=== PATIENT | female | born 1985 | race Caucasian/White ===

== ENCOUNTER 2022-07-21 13:45 | Emergency (ER) | payer OTHER, SELFPAY ==
[2022-07-21 14:02] VITALS: BP 133/67; PULSE 99; RESP 26; TEMP 36.8; O2SAT 98; BMI 28.3
[2022-07-21 14:27] LABS: Add Manual Diff / Slide Review NO; Basophils Absolute Auto 100 /uL (0-100); Basophils Percent Auto 0.8 % (0-2); Eosinophils Absolute Auto 200 /uL (0-450); Eosinophils Percent Auto 2.2 % (2-4); Hemoglobin 12.8 g/dL (12.0-16.0); Lymphocytes Absolute Auto 1200 /uL (1100-4500); Lymphocytes Percent Auto 15.2 % (25-40); Mean Corpuscular HGB Conc 32.9 % (30-36); Mean Corpuscular Hemoglobin 27.3 PG (26-34); Monocytes Absolute Auto 300 /uL (0-900); Monocytes Percent Auto 3.9 % (3-14); Neutrophils Absolute Auto 6100 /uL (1500-7000); Neutrophils Percent Auto 77.9 % (50-75); Platelet Count 322 X10^3/uL (150-400); Red Cell Distribution Width 16.4 % (11.6-14.8); White Blood Cell Count 7.9 X10^3/uL (4.5-11.0)
[2022-07-21 14:38] LABS: Alanine Aminotransferase 19 IU/L (<35); Albumin 4.6 g/dL (3.5-5.0); Albumin Globulin Ratio 1.3 (1.0-2.8); Alkaline Phosphatase 50 U/L (38-126); Aspartate Aminotransferase 23 IU/L (14-36); BUN Creatinine Ratio 27.5 (6-22); Bilirubin Total 0.4 mg/dL (0.2-1.3); Blood Urea Nitrogen 14 mg/dL (7-17); Calcium 9.5 mg/dL (8.4-10.2); Carbon Dioxide 27 mmol/L (22-32); Chloride 101 mmol/L (98-107); Estimated Glomerular Filt Rate > 60 mL/min (>60); Globulin 3.5 g/dL (1.7-4.1); Glucose 110 mg/dL (70-100); HEMOLYSIS < 15 (0-50); Lipase 80 U/L (23-300); Potassium 3.8 mmol/L (3.4-5.1); Sodium 140 mmol/L (137-145); Total Protein 8.1 g/dL (6.3-8.2)
[2022-07-21 14:50] VITALS: BP 129/73; PULSE 93; O2SAT 100
[2022-07-21] MEDS: ONDANSETRON 4 MG/2 ML INJ IV (15:07)
--- NOTE | 2022-07-21 16:20 | DI.US.S_ITS ---
PROCEDURE: US PELVIC COMPLETE INDICATIONS: PAIN TECHNIQUE: Real-time scanning was performed of the pelvic organs, with image documentation. Additional endovaginal scanning was necessary due to incomplete visualization of the adnexal and endometrial structures by transabdominal scanning. COMPARISON: None. FINDINGS: Uterus: Uterus is anteverted and normal in size at 8.4 x 4.6 x 5.3 cm. The myometrium is homogeneous. The endometrium measures 12.6 mm combined thickness. No focal uterine abnormalities. Ovaries: The right ovary measures 2.3 x 1.3 x 2.5 cm, with a calculated ovarian volume of 3.9 cc. The left ovary measures 2.1 x 2.5 x 2.3 cm, with a calculated ovarian volume of 6.3 cc. The ovaries have a normal sonographic appearance. Less than 12 follicles can be seen in each ovary. No adnexal masses are seen. Other: No pathologic free abdominal or pelvic fluid. IMPRESSION: Pelvic ultrasound without acute sonographic abnormalities. We strive to produce accurate, complete, and clear reports of imaging services. To assist us in improving patient care, this report was composed using standard report templates and voice recognition software. Therefore, it may contain abnormal punctuation, insertions and/or omissions. Occasional wrong-word or sound-alike substitutions may occur. Though we review the report and make efforts to correct it, we do recommend that the report be read carefully in proper context to recognize any text inaccuracies. Dictated by: Edwar Hooks M.D. on 07/21/2022 at 17:26 Approved by: Edwar Hooks M.D. on 07/21/2022 at 17:27
--- NOTE | 2022-07-21 16:22 | ED_ITS ---
HPI - Abdominal Pain <Fatuma Jones EMPLOYMENT SERVICE SPECIALIST - Last Filed: 07/21/22 21:26> General Chief Complaint: Abdominal Pain Stated Complaint: Right side cyst pain 2hrs Time Seen by Provider: 07/21/22 14:23 Source: patient Mode of arrival: Family Vehicle History of Present Illness HPI narrative: This is a 37 year old female with history of , tubal ligation, states that she has adrenal insufficiency from high doses of steroids for many years for atopic dermatitis who presents with right pelvic pain which she thinks is related to an ovarian cyst. She states that she has history of ovarian cyst, last menses was 1.5 weeks ago. She denies any abnormal vaginal discharge, urinary frequency or urgency, denies any weakness, nausea, vomiting. States that she took ibuprofen at noon today. She is tearful, has allergy to hydrocodone but states that she tolerates Percocet. Denies diarrhea, cough, congestion, denies other abdominal pain. Related Data Home Medications Medication Instructions Recorded Confirmed acyclovir 800 mg tablet (Zovirax) 800 mg PO QDAY ##0 03/22/17 albuterol sulfate 90 mcg/actuation 1 puff INH ##0 03/22/17 aerosol inhaler (Proventil HFA) alprazolam 0.25 mg tablet 0.5 mg PO Q8HP PRN ##0 03/22/17 diclofenac 50 mg-misoprostol 200 1 tab PO TID ##0 03/22/17 mcg tablet,immed.and delayed release (Arthrotec) hydrocortisone 10 mg tablet 10 mg PO BIDCC ##0 03/22/17 (Cortef) methylprednisolone acetate 40 25 mg IM PRN PRN ##0 03/22/17 mg/mL suspension for injection (Depo-Medrol) mupirocin 2 % topical ointment 1 teo topical TID ##0 03/22/17 sertraline 50 mg tablet (Zoloft) 50 mg PO QDAY ##0 03/22/17 Allergies Allergy/AdvReac Type Severity Reaction Status Date / Time doxycycline [DOXYCYCLINE] Allergy Intermediate N/V Unverified 10/25/17 12:26 hydrocodone Allergy Mild HIVES Unverified 10/25/17 12:26 Sulfa (Sulfonamide Allergy Mild HIVES Unverified 10/25/17 12:26 Antibiotics) Review of Systems <LES Walker - Last Filed: 07/21/22 21:26> Review of Systems ROS Unobtainable: All systems reviewed & are unremarkable except as noted in HPI and below Patient History <LES Walker - Last Filed: 07/21/22 21:26> Social History Smoking Status: Never smoker Smoking Status: Never smoker alcohol intake frequency: 0-2 drinks per day Substance Use Type: marijuana Exam <LES Walker - Last Filed: 07/21/22 21:26> Narrative Exam Narrative: Reviewed vitals signs and nursing notes. General: cooperative, comfortable, in no acute distress, well groomed HEENT: symmetrical facial expressions, moist mucous membranes Cardiovascular: regular rate and rhythm, no peripheral edema, warm extremities Respiratory: normal effort, able to speak in complete sentences, without wheezing, stridor, or abnormal breath sounds. No retractions or tachypnea. GI: abdomen soft, abdomen is nontender to palpation, right sided pelvic pain with deep palpation, nondistended, without masses, rebound tenderness or exquisite tenderness with exam. MSK: moves all extremities, neurovascularly intact, no weakness, normal tone Skin: brisk capillary refill, without pallor or erythema Neuro: normal speech and cognition, A&O x3, ambulatory, clear speech Psych: mental status is grossly normal, congruent mood, normal affect, pleasant and cooperative Initial Vital Signs Initial Vital Signs: Vital Signs Temperature 98.2 F 07/21/22 14:02 Pulse Rate 99 H 07/21/22 14:02 Respiratory Rate 26 H 07/21/22 14:02 Blood Pressure 133/67 07/21/22 14:02 Pulse Oximetry 98 07/21/22 14:02 Oxygen Delivery Method 07/21/22 14:02 <Roman Limon DO - Last Filed: 07/23/22 11:34> Initial Vital Signs Initial Vital Signs: Vital Signs Temperature 98.2 F 07/21/22 14:02 Pulse Rate 99 H 07/21/22 14:02 Respiratory Rate 26 H 07/21/22 14:02 Blood Pressure 133/67 07/21/22 14:02 Pulse Oximetry 98 07/21/22 14:02 Oxygen Delivery Method 07/21/22 14:02 Course <LES Walker - Last Filed: 07/21/22 21:26> Orders Ordered: Discontinued Medications Ketorolac Tromethamine (Ketorolac 30 Mg/Ml Vial) 15 mg IV NOW ONE Stop: 07/21/22 16:21 Last Admin: 07/21/22 16:33 Dose: 15 mg Documented By: NEVIN Ketorolac Tromethamine (Ketorolac 30 Mg/Ml Vial) 15 mg IM NOW ONE Stop: 07/21/22 16:21 Last Admin: 07/21/22 16:37 Dose: Not Given Documented By: NEVIN Ondansetron HCl (Ondansetron 4 Mg Odt) 4 mg PO NOW PRN PRN Reason: Nausea And Vomiting Ondansetron HCl (Ondansetron 4 Mg/2 Ml Inj) 4 mg IV NOW PRN PRN Reason: Nausea And Vomiting Last Admin: 07/21/22 15:07 Dose: 4 mg Documented By: LAURA Oxycodone/Acetaminophen (Oxycodone/Acetaminophen 5/325 Tablet) 1 tab PO NOW ONE Stop: 07/21/22 16:21 Last Admin: 07/21/22 16:33 Dose: 1 tab Documented By: NEVIN Vital Signs Vital signs: Vital Signs - 8 hr 07/21/22 14:02 07/21/22 14:50 07/21/22 17:43 Temperature 98.2 F Pulse Rate 99 H 93 H 73 Respiratory Rate 26 H Blood Pressure 133/67 129/73 107/61 Pulse Oximetry 98 100 100 Oxygen Delivery Method Room Air Room Air Room Air 07/21/22 19:20 Temperature Pulse Rate 81 Respiratory Rate 18 Blood Pressure 111/64 Pulse Oximetry 98 Oxygen Delivery Method Room Air <Roman Limon DO - Last Filed: 07/23/22 11:34> Orders Ordered: Discontinued Medications Ketorolac Tromethamine (Ketorolac 30 Mg/Ml Vial) 15 mg IV NOW ONE Stop: 07/21/22 16:21 Last Admin: 07/21/22 16:33 Dose: 15 mg Documented By: NEVIN Ketorolac Tromethamine (Ketorolac 30 Mg/Ml Vial) 15 mg IM NOW ONE Stop: 07/21/22 16:21 Last Admin: 07/21/22 16:37 Dose: Not Given Documented By: NEVIN Ondansetron HCl (Ondansetron 4 Mg Odt) 4 mg PO NOW PRN PRN Reason: Nausea And Vomiting Ondansetron HCl (Ondansetron 4 Mg/2 Ml Inj) 4 mg IV NOW PRN PRN Reason: Nausea And Vomiting Last Admin: 07/21/22 15:07 Dose: 4 mg Documented By: LAURA Oxycodone/Acetaminophen (Oxycodone/Acetaminophen 5/325 Tablet) 1 tab PO NOW ONE Stop: 07/21/22 16:21 Last Admin: 07/21/22 16:33 Dose: 1 tab Documented By: NEVIN Vital Signs Vital signs: Vital Signs - 8 hr 07/21/22 14:02 07/21/22 14:50 07/21/22 17:43 Temperature 98.2 F Pulse Rate 99 H 93 H 73 Respiratory Rate 26 H Blood Pressure 133/67 129/73 107/61 Pulse Oximetry 98 100 100 Oxygen Delivery Method Room Air Room Air Room Air 07/21/22 19:20 Temperature Pulse Rate 81 Respiratory Rate 18 Blood Pressure 111/64 Pulse Oximetry 98 Oxygen Delivery Method Room Air MDM - Abdominal Pain <LES Walker - Last Filed: 07/21/22 21:26> Lab Data Result diagrams: 07/21/22 14:17 07/21/22 14:17 Labs: Lab Results 07/21/22 07/21/22 07/21/22 Range/Units 14:17 14:17 17:00 WBC 7.9 (4.5-11.0) X10^3/uL RBC 4.70 (4.0-5.2) X10^6/uL Hgb 12.8 (12.0-16.0) g/dL Hct 39.0 (36-46) % MCV 83.0 (80-100) fL MCH 27.3 (26-34) PG MCHC 32.9 (30-36) % RDW 16.4 H (11.6-14.8) % Plt Count 322 (150-400) X10^3/uL Neut % (Auto) 77.9 H (50-75) % Lymph % (Auto) 15.2 L (25-40) % Sunflower % (Auto) 3.9 (3-14) % Eos % (Auto) 2.2 (2-4) % Baso % (Auto) 0.8 (0-2) % Neut # (Auto) 6100 (7008-6624) /uL Lymph # (Auto) 1200 (6319-4910) /uL Sunflower # (Auto) 300 (0-900) /uL Eos # (Auto) 200 (0-450) /uL Baso # (Auto) 100 (0-100) /uL Sodium 140 (137-145) mmol/L Potassium 3.8 (3.4-5.1) mmol/L Chloride 101 (98-107) mmol/L Carbon Dioxide 27 (22-32) mmol/L BUN 14 (7-17) mg/dL Creatinine 0.51 L (0.52-1.04) mg/dL Estimated GFR > 60 (>60) mL/min BUN/Creatinine Ratio 27.5 H (6-22) Glucose 110 H (70-100) mg/dL Calcium 9.5 (8.4-10.2) mg/dL Total Bilirubin 0.4 (0.2-1.3) mg/dL AST 23 (14-36) IU/L ALT 19 (<35) IU/L Alkaline Phosphatase 50 (38-126) U/L Total Protein 8.1 (6.3-8.2) g/dL Albumin 4.6 (3.5-5.0) g/dL Globulin 3.5 (1.7-4.1) g/dL Albumin/Globulin Ratio 1.3 (1.0-2.8) Lipase 80 (23-300) U/L Urine RBC 0-1/hpf (0-5/HPF) Urine WBC None seen (0-5/HPF) Urine Bacteria None seen (None) Ur Culture Indicated? Cult not indicated Ur Chlamydia DNA (PCR) N gonorrhoeae DNA (PCR) 07/21/22 Range/Units 17:00 WBC (4.5-11.0) X10^3/uL RBC (4.0-5.2) X10^6/uL Hgb (12.0-16.0) g/dL Hct (36-46) % MCV (80-100) fL MCH (26-34) PG MCHC (30-36) % RDW (11.6-14.8) % Plt Count (150-400) X10^3/uL Neut % (Auto) (50-75) % Lymph % (Auto) (25-40) % Sunflower % (Auto) (3-14) % Eos % (Auto) (2-4) % Baso % (Auto) (0-2) % Neut # (Auto) (4134-6663) /uL Lymph # (Auto) (1337-2969) /uL Sunflower # (Auto) (0-900) /uL Eos # (Auto) (0-450) /uL Baso # (Auto) (0-100) /uL Sodium (137-145) mmol/L Potassium (3.4-5.1) mmol/L Chloride (98-107) mmol/L Carbon Dioxide (22-32) mmol/L BUN (7-17) mg/dL Creatinine (0.52-1.04) mg/dL Estimated GFR (>60) mL/min BUN/Creatinine Ratio (6-22) Glucose (70-100) mg/dL Calcium (8.4-10.2) mg/dL Total Bilirubin (0.2-1.3) mg/dL AST (14-36) IU/L ALT (<35) IU/L Alkaline Phosphatase (38-126) U/L Total Protein (6.3-8.2) g/dL Albumin (3.5-5.0) g/dL Globulin (1.7-4.1) g/dL Albumin/Globulin Ratio (1.0-2.8) Lipase (23-300) U/L Urine RBC (0-5/HPF) Urine WBC (0-5/HPF) Urine Bacteria (None) Ur Culture Indicated? Ur Chlamydia DNA (PCR) Not detected N gonorrhoeae DNA (PCR) Not detected Imaging Data US - POT FEEDER: Radiologist's Impression: Patient: Zee Blackwell MR#: [id number] : 1985 Acct:[id number] Age/Sex: 37 / F Date of Service: 07/21/22 Loc: ED Accession Number: [id number] ?? Procedure: US pelvic complete Ordering Provider: Fatuma Jones PROCEDURE:? US PELVIC COMPLETE ? INDICATIONS:? PAIN ? TECHNIQUE:? Real-time scanning was performed of the pelvic organs, with image documentation.? Additional endovaginal scanning was necessary due to incomplete visualization of the adnexal and endometrial structures by transabdominal scanning.? ? COMPARISON:? None. ? FINDINGS:? ?? Uterus:? Uterus is anteverted and normal in size at 8.4 x 4.6 x 5.3 cm. The my ometrium is homogeneous. ? The endometrium measures 12.6 mm combined thickness.? No focal uterine abnormalities. ? Ovaries:? The right ovary measures 2.3 x 1.3 x 2.5 cm, with a calculated ovarian volume of 3.9 cc. The left ovary measures 2.1 x 2.5 x 2.3 cm, with a calculated ovarian volume of 6.3 cc. The ovaries have a normal sonographic appearance. Less than 12 follicles can be seen in each ovary.? No adnexal masses are seen. ? Other:? No pathologic free abdominal or pelvic fluid. ? ? IMPRESSION:? Pelvic ultrasound without acute sonographic abnormalities. ? ? We strive to produce accurate, complete, and clear reports of imaging services. To assist us in improving patient care, this report was composed using standard report templates and voice recognition software. Therefore, it may contain abnormal punctuation, insertions and/or omissions. Occasional wrong-word or sound-alike substitutions may occur. Though we review the report and make efforts to correct it, we do recommend that the report be read carefully in proper context to recognize any text inaccuracies. ? ? Dictated by: Edwar Hooks M.D. on 07/21/2022 at 17:26 ? ? Approved by: Edwar Hooks M.D. on 07/21/2022 at 17:27 ? MDM Narrative Medical decision making narrative: This is a 37-year-old female, who presents to the emergency department with right pelvic pain with history of ovarian cyst, is not on contraception, last menses was 1.5 weeks ago complains of right pelvic pain without fever, chills, other abdominal pain, flank pain, dysuria or shortness breath. Differential diagnosis include biliary disease, pancreatitis, STI, perforated viscus, appendicitis, colitis, diverticulitis, IBS, intestinal ischemia, ectopic , ovarian cyst, acute cystitis, PID, cholecystitis, choledocholithiasis, cholangitis, gastritis, esophagitis with underlying GERD, viral gastroenteritis or other acute viral process including COVID, influenza or RSV, appendicitis, acute cystitis, nephrolithiasis, pyelonephritis, AAA, ACS, infectious colitis. Routine labs, transvaginal US, urinalysis, lipase and urine ordered. ?Patient provided IV Zofran toradol and percocet for discomfort. Course of Care: Pelvis Ultrasound is negative for acute sonographic abnormalities, no masses, without free abdominal pelvic fluid. UA is negative for infection, RBCs, and G and C gonorrhea chlamydia negative via PCR Patient's lab work overall is unremarkable without electrolyte abnormality, elevated liver enzymes, leukocytosis or anemia. Urine is negative Patient's symptoms improved over duration of stay with above-stated therapies. Encourage patient to follow-up with her PCP for another evaluation, gave her contact information for OBGYN follow-up, this is most likely a ruptured ovarian cyst as her symptoms have improved, she is 1.5 weeks outside of her regular menses, pregnancies negative, without torsion or ectopic . She was p rovided pain control and encouraged to use MiraLax or other stool softener to help keep her stool soft. Ibuprofen and Tylenol as recommended with hydration and follow-up. Patient is appropriate and amenable to discharge home. Vital signs are stable on repeat examination is unremarkable. Patient has been informed of results. Patient has been given strict return to ER precautions for any new or worsening symptoms. Patient understands to follow up closely with outpatient providers as instructed. Patient understands plan and agrees to discharge home. All questions and concerns answered at this time. MIPS: This encounter doesn't have any diagnosis associated with MIPS criteria. Social determinants of health that may impact treatment or disposition: Vital Signs: I, the ED provider, reviewed the patient?s vital signs, past medical records and encounters if available, and nursing notes. I have spoken with the patient/family and discussed today?s findings whom verbalize understanding. Counseling was provided regarding the diagnosis and prognosis, and specific details were provided for the plan of care. Questions are addressed and there is agreement with the plan and for follow-up. Patient is appropriate for outpatient management. Portions of this chart have been created with [employer] voice recognition software. Occasional wrong word or sound alike substitutions may have occurred due to the inherent limitations of this software. I, LES Reese, personally performed the services described in the documentation, and it accurately records my words and actions. I collaborated with the ED attending physician for TANIKA level 2, 3, and some level 4s as needed Electronically signed by: LES Reese <Roman Limon, DO - Last Filed: 07/23/22 11:34> Lab Data Labs: Lab Results 07/21/22 07/21/22 07/21/22 Range/Units 14:17 14:17 17:00 WBC 7.9 (4.5-11.0) X10^3/uL RBC 4.70 (4.0-5.2) X10^6/uL Hgb 12.8 (12.0-16.0) g/dL Hct 39.0 (36-46) % MCV 83.0 (80-100) fL MCH 27.3 (26-34) PG MCHC 32.9 (30-36) % RDW 16.4 H (11.6-14.8) % Plt Count 322 (150-400) X10^3/uL Neut % (Auto) 77.9 H (50-75) % Lymph % (Auto) 15.2 L (25-40) % Sunflower % (Auto) 3.9 (3-14) % Eos % (Auto) 2.2 (2-4) % Baso % (Auto) 0.8 (0-2) % Neut # (Auto) 6100 (5068-6964) /uL Lymph # (Auto) 1200 (7066-4914) /uL Sunflower # (Auto) 300 (0-900) /uL Eos # (Auto) 200 (0-450) /uL Baso # (Auto) 100 (0-100) /uL Sodium 140 (137-145) mmol/L Potassium 3.8 (3.4-5.1) mmol/L Chloride 101 (98-107) mmol/L Carbon Dioxide 27 (22-32) mmol/L BUN 14 (7-17) mg/dL Creatinine 0.51 L (0.52-1.04) mg/dL Estimated GFR > 60 (>60) mL/min BUN/Creatinine Ratio 27.5 H (6-22) Glucose 110 H (70-100) mg/dL Calcium 9.5 (8.4-10.2) mg/dL Total Bilirubin 0.4 (0.2-1.3) mg/dL AST 23 (14-36) IU/L ALT 19 (<35) IU/L Alkaline Phosphatase 50 (38-126) U/L Total Protein 8.1 (6.3-8.2) g/dL Albumin 4.6 (3.5-5.0) g/dL Globulin 3.5 (1.7-4.1) g/dL Albumin/Globulin Ratio 1.3 (1.0-2.8) Lipase 80 (23-300) U/L Urine RBC 0-1/hpf (0-5/HPF) Urine WBC None seen (0-5/HPF) Urine Bacteria None seen (None) Ur Culture Indicated? Cult not indicated Ur Chlamydia DNA (PCR) N gonorrhoeae DNA (PCR) 07/21/22 Range/Units 17:00 WBC (4.5-11.0) X10^3/uL RBC (4.0-5.2) X10^6/uL Hgb (12.0-16.0) g/dL Hct (36-46) % MCV (80-100) fL MCH (26-34) PG MCHC (30-36) % RDW (11.6-14.8) % Plt Count (150-400) X10^3/uL Neut % (Auto) (50-75) % Lymph % (Auto) (25-40) % Sunflower % (Auto) (3-14) % Eos % (Auto) (2-4) % Baso % (Auto) (0-2) % Neut # (Auto) (1988-3567) /uL Lymph # (Auto) (4796-6323) /uL Sunflower # (Auto) (0-900) /uL Eos # (Auto) (0-450) /uL Baso # (Auto) (0-100) /uL Sodium (137-145) mmol/L Potassium (3.4-5.1) mmol/L Chloride (98-107) mmol/L Carbon Dioxide (22-32) mmol/L BUN (7-17) mg/dL Creatinine (0.52-1.04) mg/dL Estimated GFR (>60) mL/min BUN/Creatinine Ratio (6-22) Glucose (70-100) mg/dL Calcium (8.4-10.2) mg/dL Total Bilirubin (0.2-1.3) mg/dL AST (14-36) IU/L ALT (<35) IU/L Alkaline Phosphatase (38-126) U/L Total Protein (6.3-8.2) g/dL Albumin (3.5-5.0) g/dL Globulin (1.7-4.1) g/dL Albumin/Globulin Ratio (1.0-2.8) Lipase (23-300) U/L Urine RBC (0-5/HPF) Urine WBC (0-5/HPF) Urine Bacteria (None) Ur Culture Indicated? Ur Chlamydia DNA (PCR) Not detected N gonorrhoeae DNA (PCR) Not detected Discharge Plan Departure Patient Disposition: Home Clinical Impression: Pelvic pain Ovarian cyst Qualifiers: Laterality: left Qualified Code(s): N83.202 - Unspecified ovarian cyst, left side Instructions: DI for Pelvic Pain Activity Restrictions/Additional Instructions: *You have been diagnosed with a left ovarian simple cyst that did not shows size significance on ultrasound. It was approximally 2 mm. You may have had a hemorrhagic cyst or a ruptured cyst on the right but there is no free pelvic fl uid so this is a good sign. Your lab work is reassuring, no signs bloodstream infection, ear pelvic ultrasound does not show any acute abnormalities, no torsion of the ovary or large cyst or concerning findings. Your UA does not show RBCs, WBCs, bacteria. There are secondary tests that will take 1-2 days, we will call you if those are positive and abnormal. For OBGYN care, please follow-up with Dr. Cole. I printed your ultrasound for your records. Use ibuprofen 800 mg every 8 hours, with 975 mg of Tylenol and food and water to prevent exacerbation of pain *What to do: *Please continue to take your regular medications as directed. [ ] New medication prescriptions sent to your pharmacy: [ ] [ ] New medication written as a paper prescription [x ] No new medications given *Please follow up with your primary care provider in 2-3 days, call for an appointment. Let them know you were seen in the Emergency Department and that we asked that you be seen for follow-up. We will electronically transmit a record of today's note if your PCP is in our system *If you do not have a primary care provider please contact [phone] to establish care with one of the [facility] primary care providers. *Return to Emergency Department if you should have any new, worsening, or concerning symptoms, such as [fever greater than 101F, chills, worsening pain, persistent vomiting or other bothersome symptoms]. Prescriptions: No Action methylprednisolone acetate [Depo-Medrol] 40 MG/1 ML suspension 25 mg IM PRN PRNQty: 0 albuterol sulfate [Proventil HFA] 90 MCG/PUFF HFA aerosol inhaler 1 puff INH Qty: 0 hydrocortisone [Cortef] 10 MG tablet 10 mg PO BIDCC Qty: 0 sertraline [Zoloft] 50 MG tablet 50 mg PO QDAY Qty: 0 alprazolam 0.25 MG tablet 0.5 mg PO Q8HP PRNQty: 0 diclofenac-misoprostol [Arthrotec 50] 50 MG/200 MCG tablet,IR,delayed rel,biphasic 1 tab PO TID Qty: 0 mupirocin 2 % ointment 1 teo Topical TID Qty: 0 acyclovir [Zovirax] 800 MG tablet 800 mg PO QDAY Qty: 0 Referrals: Rigo Carbajal MD [Primary Care Provider] - Noel Cole MD [Physician] - (Please call and schedule a follow-up appointment for follow-up) Stand Alone Forms: Patient Portal/API <Roman Limon DO - Last Filed: 07/23/22 11:34> Cosign ED Attending Tracieature Attestation: I was immediately available in the department for consultation. This documentation has been reviewed and I agree with assessment and plan. Supervised by Roman Limon DO
[2022-07-21] MEDS: KETOROLAC 30 MG/ML VIAL 15 MG IV (16:33)
[2022-07-21] MEDS: OXYCODONE/ACETAMINOPHEN 5/325 TABLET 1 TAB PO (16:33)
[2022-07-21 17:43] VITALS: BP 107/61; PULSE 73; O2SAT 100
[2022-07-21 18:13] LABS: Bacteria Urine None Seen; Culture Indicated Urine Cult Not Indicated; RBC Urine 0-1/HPF (0-5/HPF); WBC Urine None Seen (0-5/HPF)
[2022-07-21 19:06] LABS: Urine N gonorrhoeae NOT DETECTED
[2022-07-21 19:07] LABS: Urine Chlamydia NOT DETECTED
[2022-07-21 19:20] VITALS: BP 111/64; PULSE 81; RESP 18; O2SAT 98
== END 2022-07-21 18:32 | disposition home or self-care (01) ==
PROVIDERS: Emergency Medicine; Emergency Provider Nurse Practitioner Critical Care Medicine; Family Provider Family Medicine; PCP Family Medicine
DX: R10.2 Pelvic and perineal pain (principal); N83.202 Unspecified ovarian cyst, left side; Z79.899 Other long term (current) drug therapy
CPT/HCPCS: 36415; 76830; 76856; 80053; 81015; 83690; 85025; 87491; 87591; 93005; 93010; 93975; 96374; 96375; 99284; J1885; J2405